=== PATIENT | female | born 1990 ===

== ENCOUNTER 2017-04-08 06:36 | Emergency (ER) | payer OTHER ==
[2017-04-08 06:56] VITALS: RESP 16; O2SAT 100
[2017-04-08] MEDS ORDERED: Sodium Chloride 0.9% 1,000 ML IV STA (07:08)
--- NOTE | 2017-04-08 07:14 | ED PDOC ---
HPI: Abdomen Time Seen by Provider: 04/08/17 07:00 Chief Complaint (Nursing): Abdominal Pain Chief Complaint (Provider): Abdominal Pain History Per: Patient History/Exam Limitations: no limitations Onset/Duration Of Symptoms: Hrs (since last night) Additional Complaint(s): Maryam Griffith, 27 year old female presents to the ED on 04/08/17 complaining of gastric pain associated with nausea and vomiting since last night. She is unable to tolerate fluids by mouth. The patient denies any diarrhea or fever and has no pertinent past medical history. Past Medical History Reviewed: Historical Data, Nursing Documentation, Vital Signs Vital Signs: Last Vital Signs Temp 98.3 F 04/08/17 06:51 Pulse 77 04/08/17 06:51 Resp 16 04/08/17 06:51 BP 127/69 04/08/17 06:51 Pulse Ox 100 04/08/17 07:18 - Medical History PMH: No Chronic Diseases - Family History Family History: States: Unknown Family Hx - Home Medications Home Medications: Ambulatory Orders Medication Instructions Recorded Famotidine [Pepcid] 20 mg PO Q12 #20 tab 04/08/17 Ondansetron [Zofran] 4 mg PO Q8H #10 tab 04/08/17 - Allergies Allergies/Adverse Reactions: Allergies Allergy/AdvReac Type Severity Reaction Status Date / Time No Known Allergies Allergy Verified 04/08/17 06:51 Review of Systems ROS Statement: Except As Marked, All Systems Reviewed And Found Negative Constitutional: Positive for: Other (unable to tolerate PO fluids). Negative for: Fever Gastrointestinal: Positive for: Nausea, Vomiting, Abdominal Pain (gastric pain ) . Negative for: Diarrhea Physical Exam - Reviewed Nursing Documentation Reviewed: Yes Vital Signs Reviewed: Yes - Physical Exam Appears: Positive for: Non-toxic, No Acute Distress Head Exam: Positive for: ATRAUMATIC, NORMOCEPHALIC ENT: Positive for: Other (mucous membranes dry ) Cardiovascular/Chest: Positive for: Regular Rate, Rhythm, Chest Non Tender Respiratory: Positive for: Normal Breath Sounds. Negative for: Accessory Muscle Use, Respiratory Distress Gastrointestinal/Abdominal: Positive for: Bowel Sounds, Tenderness (no lower abdominal tenderness; abdominal epigastric tenderness present ) Extremity: Positive for: Normal ROM Neurologic/Psych: Positive for: Alert, Oriented (x3) - Laboratory Results Result Diagrams: 04/08/17 07:40 04/08/17 07:40 - ECG O2 Sat by Pulse Oximetry: 100 (RA) Pulse Ox Interpretation: Normal - Progress Re-evaluation Time: 08:35 Condition: Improved (tolerated PO challenge) Medical Decision Making Medical Decision Making: Initial Impression: Gastric Pain Initial Plan: * COMP Metabolic Panel * ED Urine (POC) Stat * ED Urine Dipstick (POC) Stat * CBC (With Differential) Stat * Sodium Chloride 0.9% 1,000 ml IV 250 mls/hr * Zofran Inj 4 mg IVP Once One * Reevaluation Scribe Attestation: Documented by Kay Basurto, acting as a scribe for Alexei Ballesteros MD. Provider Scribe Attestation: All medical record entries made by the Scribe were at my direction and personally dictated by me. I have reviewed the chart and agree that the record accurately reflects my personal performance of the history, physical exam, medical decision making, and the department course for this patient. I have also personally directed, reviewed, and agree with the discharge instructions and disposition. Disposition - Clinical Impression Clinical Impression: Gastroenteritis - Patient ED Disposition Is Patient to be Admitted: No Counseled Patient/Family Regarding: Studies Performed, Diagnosis, Need For Followup, Rx Given - Disposition Referrals: [facility] [Outside] Disposition: Routine/Home Disposition Time: 08:35 Condition: FAIR Prescriptions: Famotidine [Pepcid] 20 mg PO Q12 #20 tab Ondansetron [Zofran] 4 mg PO Q8H #10 tab Instructions: Gastroenteritis (ED)
[2017-04-08 07:52] LABS: BASO % 0.3 % (0.0-2.0); EOS % 0.4 % (0.0-4.0); HEMATOCRIT 41.5 % (34.0-47.0); LYMPH # 0.9 K/uL (1.0-4.3); LYMPH % 8.9 % (20.0-40.0); MEAN CELL VOLUME 93.3 fl (81.0-99.0); MEAN CORPUSCULAR HEMOGLOBIN 30.6 pg (27.0-31.0); MEAN CORPUSCULAR HGB CONC 32.7 g/dL (33.0-37.0); MEAN PLATELET VOLUME 9.2 fl (7.2-11.7); MONO # 0.4 K/uL (0.0-0.8); MONO % 3.9 % (0.0-10.0); NEUT # 8.3 K/uL (1.8-7.0); NEUT % 86.5 % (50.0-75.0); PLATELET COUNT 229 K/uL (130-400); RED CELL DISTRIBUTION WIDTH 13.2 % (11.5-14.5); WHITE BLOOD COUNT 9.7 K/uL (4.8-10.8)
[2017-04-08 08:02] LABS: ALB/GLOB RATIO 1.4 (1.0-2.1); ALKALINE PHOSPHATASE 62 U/L (38-126); ALT/SGPT 50 U/L (9-52); AST/SGOT 31 U/L (14-36); BILIRUBIN,TOTAL 1.8 mg/dl (0.2-1.3); BLOOD UREA NITROGEN 15 mg/dl (7-17); CALCIUM 9.8 mg/dL (8.4-10.2); CARBON DIOXIDE 23 mmol/L (22-30); CHLORIDE 107 mmol/L (98-107); GFR AFRICAN-AMERICAN > 60; GLUCOSE,RANDOM 97 mg/dL (65-105); POTASSIUM 4.1 MMOL/L (3.6-5.0); SODIUM 142 mmol/l (132-148); TOTAL PROTEIN 8.6 G/DL (6.3-8.2)
[2017-04-08 09:07] VITALS: BP 128/72; PULSE 70; TEMP 98
[2017-04-08 09:36] LABS: NEUTROPHIL 87 % (42-75); TOTAL CELLS COUNTED 100
== END 2017-04-08 09:07 | disposition home or self-care (01) ==
LOC: H.ER 06:36
DX: K52.9 Noninfective gastroenteritis and colitis, unspecified (principal)